=== PATIENT | male | born 1990 | race Caucasian/White ===

== ENCOUNTER 2017-05-17 04:11 | Emergency (ER) | END 2017-05-17 05:15 | disposition home or self-care (01) ==

== ENCOUNTER 2017-05-18 11:28 | Emergency (ER) | END 2017-05-18 16:06 | disposition home or self-care (01) ==

== ENCOUNTER 2017-05-21 14:28 | Emergency (ER) | END 2017-05-21 20:00 | disposition left against medical advice (07) ==